=== PATIENT | female | born 1940 | race Caucasian/White ===

== ENCOUNTER 2016-11-10 08:45 | Day surgery (SDC) | payer MEDICARE ==
[2016-11-09 11:24] VITALS: BMI 25.3
[~2016-11-10 08:45] MED LIST: LACTATED RINGERS 1,000 ML IV SCH
[2016-11-10 09:50] VITALS: TEMP 97.6
[2016-11-10] MEDS ORDERED: LIDOCAINE 1% 20 ML VIAL (10MG/ML) FOR IV START INTRADERMA ONE (09:51)
[2016-11-10] MEDS ORDERED: ONDANSETRON 4 MG/2 ML VIAL IVP ONE (09:51)
[2016-11-10 09:57] LABS: Glucose,Whole Blood 144 mg/dL (75-99)
[2016-11-10] MEDS ORDERED: LIDOCAINE 1% INJ 10MG/ML (20 ML MDV) ONE (10:26)
[2016-11-10] MEDS ORDERED: PROPOFOL 10 MG/ML 20 ML VIAL IV ONE (10:26)
--- NOTE | 2016-11-10 10:43 | P.PCN ---
Date of Procedure: 11/10/16 Preoperative Diagnosis: Postoperative Diagnosis: Procedure(s) Performed: BRIEF HISTORY: Patient is a 75-year-old pleasant white female, scheduled for an elective colonoscopy as a part of screening for colorectal neoplasia PROCEDURE PERFORMED: Colonoscopy. PREOPERATIVE DIAGNOSIS: Screening for colon cancer IV sedation per Anesthesia. PROCEDURE: After informed consent was obtained, the patient, was brought into the endoscopy unit. IV sedation was administered by Anesthesia under continuous monitoring. Digital rectal examination was normal. Initially the Olympus CF- 160 flexible video colonoscope was then inserted in the rectum, gradually advanced into the cecum without any difficulty. Careful examination was performed as the scope was gradually being withdrawn. Ileocecal valve and the appendiceal orifice were visualized and appeared normal. Prep was excellent. Mucosa of the cecum, ascending colon, transverse colon, descending colon, sigmoid colon, and rectum appeared normal. Retroflexion was performed in the rectum and no lesions were seen. Moderate sigmoid diverticulosis The patient tolerated the procedure well. IMPRESSION: Normal-appearing colon from rectum to cecum with no evidence of colorectal neoplasia . Moderate sigmoid diverticulosis RECOMMENDATIONS: Findings of this examination were discussed with the patient as well as a family. She was advised to have a repeat screening colonoscopy in 10 years from now. Implants: Indications for Procedure: Operative Findings: Description of Procedure:
[2016-11-10 11:34] VITALS: RESP 18
[2016-11-10 11:41] VITALS: BP 180/90; PULSE 61
== END 2016-11-10 11:47 | disposition home or self-care (01) ==
LOC: ORWHC2ENDO 08:45
PROVIDERS: ATTEND Internal Medicine Gastroenterology
DX: Z12.11 Encounter for screening for malignant neoplasm of colon (principal); K57.30 Diverticulosis of large intestine without perforation or abscess without bleeding; I10 Essential (primary) hypertension; E11.9 Type 2 diabetes mellitus without complications; E78.5 Hyperlipidemia, unspecified; Z79.84 Long term (current) use of oral hypoglycemic drugs; Z79.82 Long term (current) use of aspirin; Z79.899 Other long term (current) drug therapy; Z88.5 Allergy status to narcotic agent; Z88.8 Allergy status to other drugs, medicaments and biological substances
CPT/HCPCS: J2405; J2001; J2704; G0121

== ENCOUNTER → 2016-12-21 | Outpatient (CLI) | payer MEDICARE ==
--- NOTE | 2016-12-22 09:49 | MM ---
Reason for exam: screening (asymptomatic). Last mammogram was performed 1 year ago. Physical Findings: A clinical breast exam by your physician is recommended on an annual basis and results should be correlated with mammographic findings. MG 3D Screening Mammo W/Cad Bilateral CC and MLO view(s) were taken. Prior study comparison: December 21, 2015, bilateral MG screening mammo w CAD. December 15, 2014, bilateral MG screening mammo w CAD. The breast tissue is heterogeneously dense. This may lower the sensitivity of mammography. Finding: There are stable typically benign calcifications in both breasts. ASSESSMENT: Benign, BI-RAD 2 RECOMMENDATION: Routine screening mammogram of both breasts in 1 year.
== END | disposition home or self-care (01) ==
LOC: RADMAMWWP 09:52
PROVIDERS: ATTEND Internal Medicine Geriatric Medicine
DX: Z12.31 Encounter for screening mammogram for malignant neoplasm of breast (principal)
CPT/HCPCS: 77063; G0202

== ENCOUNTER → 2017-01-04 | Outpatient (CLI) | payer MEDICARE ==
[2017-01-04 09:59] LABS: Calcium 9.5 mg/dL (8.4-10.2)
== END | disposition home or self-care (01) ==
LOC: LABWHC1 09:02
PROVIDERS: ATTEND Internal Medicine Geriatric Medicine
DX: E83.52 Hypercalcemia (principal); R94.6 Abnormal results of thyroid function studies
CPT/HCPCS: 36415; 82310; 83970; 84439; 84443

== ENCOUNTER → 2017-11-14 | Outpatient (CLI) | payer MEDICARE ==
[2017-11-14 09:35] LABS: Blood Urea Nitrogen 16 mg/dL (7-17)
== END | disposition home or self-care (01) ==
LOC: LABWHC1 08:27
PROVIDERS: ATTEND Orthopaedic Surgery
DX: N28.9 Disorder of kidney and ureter, unspecified (principal)
CPT/HCPCS: 36415; 82565; 84520

== ENCOUNTER → 2018-01-11 | Outpatient (CLI) | payer MEDICARE ==
--- NOTE | 2018-01-15 09:15 | MM ---
Reason for exam: screening (asymptomatic). Last mammogram was performed 1 year and 1 month ago. Physical Findings: A clinical breast exam by your physician is recommended on an annual basis and results should be correlated with mammographic findings. MG 3D Screening Mammo W/Cad Bilateral CC and MLO view(s) were taken. Prior study comparison: December 21, 2016, bilateral MG 3d screening mammo w/cad. December 21, 2015, bilateral MG screening mammo w CAD. The breast tissue is heterogeneously dense. This may lower the sensitivity of mammography. No significant changes when compared with prior studies. ASSESSMENT: Negative, BI-RAD 1 RECOMMENDATION: Routine screening mammogram of both breasts in 1 year.
== END | disposition home or self-care (01) ==
LOC: RADMAMWWP 10:49
PROVIDERS: ATTEND Internal Medicine Geriatric Medicine
DX: Z12.31 Encounter for screening mammogram for malignant neoplasm of breast (principal)
CPT/HCPCS: 77063; 77067

== ENCOUNTER → 2019-01-27 | Outpatient (CLI) | payer MEDICARE ==
--- NOTE | 2019-01-27 20:26 | BD ---
EXAMINATION TYPE: Axial Bone Density DATE OF EXAM: 01/27/2019 COMPARISON: 12.21.2015 CLINICAL HISTORY: 78 YR OLD FEMALE.....ICD-10 CODE: M81.0 AGE RELATED OSTEOPOROSIS Height: 63 Weight: 141 FRAX RISK QUESTIONS: Family History (Parent hip fracture): YES Secondary Osteoporosis: POSSIBLY 3. Menopause before 45: UNSURE, HYST AT AGE 32 RISK FACTORS HISTORY OF: ALL FXs UNDER THE AGE OF 50 History of Wrist Fracture: RT WRIST...< 50 YRS Family History of Osteoporosis: YES, MOTHER WITH BROKEN HIP Postmenopausal woman: YES, HYST AT AGE 32 PARTIAL ONLY MEDICATIONS: Prednisone or other steroids: PREDNISON PRN Additional Medications: CALCIUM AND VIT D, ANTI ANXIETY/DEPRESSANT, BP MEDS, DIABETIC MEDS, REFLUX MO N, STATIN FOR CHOLESTEROL Additional History: HYPERTENSION, DIABETIC EXAM MEASUREMENTS: Bone mineral densitometry was performed using the [employer] System. Bone mineral density as measured about the Lumbar spine is: ----- L1-L4(G/cm2): 1.282 T Score Values are as follows: ----- L1: 0.0 ----- L2: -0.4 ----- L3: 1.3 ----- L4: 2.2 ----- L1-L4: 0.9 Bone mineral density has: Increased 3.1% since study of: 12.21.2015 Bone mineral density about the R hip (g/cm2): 0.751 Bone mineral density about the L hip (g/cm2): 0.807 T Score values are as follows: -----R Neck: -1.8 -----L Neck: -1.9 -----R Total: -2.0 -----L Total: -1.6 Bone mineral density has: Decreased -4.1% since study of: 12.21.2015 FRAX%s: THERE IS A 33.4% CHANCE FOR A MAJOR OSTEOPOROTIC FX AND A 19.1% FOR HIP......PROBABILITY FO R FX IN 10 YRS TIME IMPRESSION: Osteopenia (T Score between -2.5 and -1). There is slightly increased risk of fracture and the patient may be considered for treatment. Re-Screen 2-5 years. NOTE: T-SCORE=SD OF THE YOUNG ADULT MEAN.
--- NOTE | 2019-01-28 11:15 | MM ---
Reason for exam: screening (asymptomatic). Last mammogram was performed 1 year and 1 month ago. Physical Findings: A clinical breast exam by your physician is recommended on an annual basis and results should be correlated with mammographic findings. MG 3D Screening Mammo W/Cad Bilateral CC and MLO view(s) were taken. Prior study comparison: January 11, 2018, bilateral MG 3d screening mammo w/cad. December 21, 2016, bilateral MG 3d screening mammo w/cad. The breast tissue is heterogeneously dense. This may lower the sensitivity of mammography. There are benign appearing round calcifications bilaterally. There is no discrete abnormality. ASSESSMENT: Benign, BI-RAD 2 RECOMMENDATION: Routine screening mammogram of both breasts in 1 year.
== END | disposition home or self-care (01) ==
LOC: RADMAMWWP 13:36
PROVIDERS: ATTEND Internal Medicine Geriatric Medicine
DX: Z12.31 Encounter for screening mammogram for malignant neoplasm of breast (principal); M85.88 Other specified disorders of bone density and structure, other site
CPT/HCPCS: 77063; 77067; 77080

== ENCOUNTER 2020-03-20 11:47 | Emergency (ER) | payer MEDICARE ==
[2020-03-20 11:53] VITALS: TEMP 98.1
[2020-03-20] MEDS ORDERED: DIPH,PERTUS(ACELL)TETVAC-LF 0.5 ML VIAL IM ONE (12:20)
--- NOTE | 2020-03-20 12:25 | ED ---
General Adult HPI - General Chief complaint: Head Injury Stated complaint: fall/face & hand injury Time Seen by Provider: 03/20/20 11:55 Source: patient, RN notes reviewed Mode of arrival: ambulatory Limitations: no limitations - History of Present Illness Initial comments: Patient is a pleasant 79-year-old female presenting to the emergency department following a fall. Incident occurred around 10 PM yesterday, over 14 hours ago. Patient states she just lost her balance and fell over. Patient states this does occasionally happen to her. Patient did strike the right side of her face. Patient has mild to moderate discomfort on the right side of her face and forehead. Patient denies loss of consciousness. No confusion. No weakness. Patient also complains of some discomfort of her left thumb. Patient is ambulatory without difficulty. - Related Data Home Medications Medication Instructions Recorded Confirmed Aspirin 81 mg PO DAILY 11/09/16 11/09/16 Cholecalciferol [Vitamin D3] 1,000 unit PO DAILY 11/09/16 11/09/16 Cyanocobalamin [Vitamin B-12] 500 mcg PO DAILY 11/09/16 11/09/16 Enalapril [Vasotec] 10 mg PO HS 11/09/16 11/09/16 Garlic 1 each PO DAILY 11/09/16 11/09/16 Metoprolol Tartrate [Lopressor] 25 mg PO 11/09/16 11/09/16 Metoprolol Tartrate [Lopressor] 50 mg PO QA 11/09/16 11/09/16 Niacin 500 mg PO BID 11/09/16 11/09/16 Simvastatin [Zocor] 20 mg PO 11/09/16 11/09/16 metFORMIN HCL [Metformin HCl] 1,000 mg PO 11/09/16 11/09/16 metFORMIN HCL [Metformin HCl] 500 mg PO QAM 11/09/16 11/09/16 Allergies Allergy/AdvReac Type Severity Reaction Status Date / Time meperidine [From Demerol] Allergy Nausea & Verified 03/20/20 11:54 Vomiting codeine AdvReac Nausea & Verified 11/09/16 11:19 Vomiting Review of Systems ROS Statement: Those systems with pertinent positive or pertinent negative responses have been documented in the HPI. ROS Other: All systems not noted in ROS Statement are negative. Constitutional: Denies: chills Eyes: Denies: eye pain, vision change ENT: Denies: ear pain Respiratory: Denies: cough Cardiovascular: Denies: chest pain Endocrine: Denies: fatigue Gastrointestinal: Denies: abdominal pain Genitourinary: Denies: dysuria Musculoskeletal: Denies: back pain Skin: Denies: rash Neurological: Reports: headache Past Medical History Past Medical History: Diabetes Mellitus, Hyperlipidemia, Hypertension Additional Past Medical History / Comment(s): hx. colon polyps, "leaky valve" History of Any Multi-Drug Resistant Organisms: None Reported Past Surgical History: Hernia Repair, Hysterectomy, Orthopedic Surgery Additional Past Surgical History / Comment(s): bunionectomy, blepharoplasty Past Anesthesia/Blood Transfusion Reactions: Postoperative Nausea & Vomiting (PONV) Past Psychological History: No Psychological Hx Reported Smoking Status: Never smoker Past Alcohol Use History: Occasional Past Drug Use History: None Reported - Past Family History Sister(s) Family Medical History: Cancer Brother(s) Family Medical History: CVA/TIA Additional Family Medical History / Comment(s): aneurysm General Exam Limitations: no limitations General appearance: alert, in no apparent distress Head exam: Present: normocephalic, other (Right periorbital swelling and mild tenderness.) Eye exam: Present: PERRL, EOMI, other (Right-sided subconjunctival hemorrhage). Absent: nystagmus ENT exam: Present: normal oropharynx, other (Mild nasal tenderness. No septal hematoma.) Neck exam: Absent: tenderness Respiratory exam: Present: normal lung sounds bilaterally Cardiovascular Exam: Present: regular rate, normal rhythm GI/Abdominal exam: Present: soft. Absent: tenderness Extremities exam: Present: tenderness (Left hand near the dorsal thenar eminence with swelling and tenderness. Distally extremity is neurovascular intact.) Neurological exam: Present: alert, oriented X3, CN II-XII intact. Absent: motor sensory deficit Expanded Neurological exam: Present: protecting the airway Speech: Present: fluid speech Cranial nerves: EOM's Intact: Normal, Facial Sensation: Normal Motor strength exam: RUE: 5, LUE: 5, RLE: 5, LLE: 5 Eye Response: (4) open spontaneously Motor Response: (6) obeys commands Verbal Response: (5) oriented Psychiatric exam: Present: normal affect, normal mood Skin exam: Present: other (Right forehead just above the eyebrow with approximately 1 cm laceration, near approximated) Course Vital Signs 03/20/20 11:48 Temperature 98.1 F Pulse Rate 68 Respiratory 18 Rate Blood Pressure 191/97 O2 Sat by Pulse 96 Oximetry - Reevaluation(s) Reevaluation #1: 03/20/20 12:25 Patient made aware of risks of leg laceration repair. Patient prefers have Steri-Strips. Procedures - Orthopedic Splinting/Casting Injury #1 Side: left Upper Extremity Injury Location: short arm, wrist Upper Extremity Immobilizer: thumb spica Medical Decision Making - Medical Decision Making Splint placed. Patient reevaluated and updated. - Radiology Data Radiology results: report reviewed (Computed tomography scan brain shows no acute process. Computed tomography scan facial bones shows questionable nasal fracture), image reviewed (Left hand x-ray does show fracture at the base of the first phalanx.) Disposition Clinical Impression: Fracture of thumb, left, closed, Nasal fracture Disposition: HOME SELF-CARE Condition: Stable Instructions (If sedation given, give patient instructions): Head Injury (ED), Hand Fracture (ED), Nasal Fracture (ED) Additional Instructions: Please follow-up with primary care physician and orthopedics in the next couple days for recheck. Ice to affected area. Return for confusion, weakness, worsening or changing symptoms or other concerns. Is patient prescribed a controlled substance at d/c from ED?: No Referrals: Steven Garcia MD [Primary Care Provider] - 1-2 days Delio Harris DO [Doctor of Osteopathic Medicine] - 1-2 days Time of Disposition: 13:38
--- NOTE | 2020-03-20 12:53 | CT ---
EXAMINATION TYPE: CT brain wo con DATE OF EXAM: 03/20/2020 COMPARISON: None available. HISTORY: Fall, head and facial injuries CT DLP: 742.1 mGycm Automated exposure control for dose reduction was used. FINDINGS: There is no intracranial hemorrhage, mass effect, midline shift or hydrocephalus. The white matter is grossly preserved. There is moderate right periorbital soft tissue edema without significant post se ptal involvement. The paranasal sinuses and mastoid air cells are adequately aerated. No calvarial fracture. IMPRESSION: NO ACUTE INTRACRANIAL ABNORMALITY. RIGHT PERIORBITAL SOFT TISSUE EDEMA.
--- NOTE | 2020-03-20 13:00 | CT ---
EXAMINATION TYPE: CT facial bones wo con DATE OF EXAM: 03/20/2020 COMPARISON: None available. HISTORY: Fall, facial injuries [facility] Autom[facility] exposure control for dose reduction was used. TECHNIQUE: CT scan of the sinuses is performed without contrast, axial images are obtained, coronal r eformatted images are also reviewed. FINDINGS: The paranasal sinuses including the frontal, ethmoid, sphenoid, and maxillary sinuses bila terally are well-aerated without abnormal opacification. The ostiomeatal complex is patent bilateral ly on the coronal images. Visualized portion of mastoid air cells show no abnormal opacification. There is moderate right peter orbital soft tissue edema without significant post septal involvement. There is left nasal bone fract ure. Otherwise the globes are intact bilaterally. IMPRESSION: Right periorbital soft tissue edema. Age-indeterminate left nasal bone fracture, probably acute.
--- NOTE | 2020-03-20 13:08 | XR ---
EXAMINATION TYPE: XR hand complete LT DATE OF EXAM: 03/20/2020 COMPARISON: NONE HISTORY: A TECHNIQUE: Three views are submitted. FINDINGS: There is diffuse osteopenia. There is a fracture involving the base of the proximal phalanx first dig it. Mild arthropathy of the PIP joint with more moderate to severe disease involving the PIP and DIP join ts of all digits. Arthropathy of the first carpal metacarpal joint and radiocarpal joint. IMPRESSION: 1. Mildly displaced fracture base proximal phalanx first digit. 2. Arthropathy with diffuse osteopenia 3. Correlate for erosive osteoarthritis.
[2020-03-20 13:59] VITALS: BP 112/71; PULSE 76; RESP 16
== END 2020-03-20 13:58 | disposition home or self-care (01) ==
LOC: EC 11:47
DX: S62.512A Displaced fracture of proximal phalanx of left thumb, initial encounter for closed fracture (principal); S02.2XXA Fracture of nasal bones, initial encounter for closed fracture; S01.81XA Laceration without foreign body of other part of head, initial encounter; H11.31 Conjunctival hemorrhage, right eye; I10 Essential (primary) hypertension; E11.9 Type 2 diabetes mellitus without complications; E78.5 Hyperlipidemia, unspecified; Z79.82 Long term (current) use of aspirin; Z79.899 Other long term (current) drug therapy; Z79.84 Long term (current) use of oral hypoglycemic drugs; Z88.5 Allergy status to narcotic agent; Z23 Encounter for immunization; Z98.890 Other specified postprocedural states; W19.XXXA Unspecified fall, initial encounter
CPT/HCPCS: 29125; 70450; 70486; 90471; 90715; 99284

== ENCOUNTER → 2022-11-01 | Outpatient (CLI) | payer MEDICARE ==
--- NOTE | 2022-11-01 08:51 | BD ---
EXAMINATION TYPE: Axial Bone Density DATE OF EXAM: 11/01/2022 CLINICAL HISTORY: 81 years old Female. ICD-10 CODE: M81.0 OSTEOPOROSIS Height: 62.5 in Weight: 149 lbs FRAX RISK QUESTIONS: Family History (Parent hip fracture): yes mother History of Fracture in Adulthood: rt wrist age 40; rt thumb fx age 77 Secondary Osteoporosis: 3. Menopause before 45: partial hysterectomy age 31 RISK FACTORS HISTORY OF: History of Wrist Fracture: rt wrist When: age 42 Family History of Osteoporosis: yes mother Active: yes Postmenopausal woman: partial hysterectomy age 31 Frequent falls: yes due to balance issues MEDICATIONS: Additional Medications: calcium, vit d, blood pressure meds, diabetes meds, heart meds, EXAM MEASUREMENTS: Bone mineral densitometry was performed using the [employer] System. Bone mineral density as measured about the Lumbar spine is: ----- L1-L4(G/cm2): 1.149 T Score Values are as follows: ----- L1: -0.8 ----- L2: -0.9 ----- L3: 0.0 ----- L4: 0.3 ----- L1-L4: -0.3 Z Score Values are as follows: ----- L1: 1.0 ----- L2: 0.8 ----- L3: 1.7 ----- L4: 2.0 ----- L1-L4: 1.5 Bone mineral density has: Decreased -10.4% since study of: 01/27/2019 Bone mineral density about the R hip (g/cm2): 0.696 Bone mineral density about the L hip (g/cm2): 0.757 T Score values are as follows: -----R Neck: -2.8 -----L Neck: -2.2 -----R Total: -2.5 -----L Total: -2.0 Z Score values are as follows: -----R Neck: -0.7 -----L Neck: -0.1 -----R Total: -0.5 -----L Total: -0.1 Bone mineral density has: Decreased -6.7% since study of: 01/27/2019 FRAX%s: The graph provided illustrates a 52.9% chance for a major osteoporotic fx and a 38.9% chance for the hips probability for fx in 10 years time. IMPRESSION: Osteoporosis (T Score less than -2.5). There is increased fracture risk and therapy is usually indicated based on age. Re-Screen 1-2 years. NOTE: T-SCORE=SD OF THE YOUNG ADULT MEAN.
--- NOTE | 2022-11-02 10:07 | MM ---
Reason for Exam: Screening (asymptomatic). Last screening mammogram was performed 12 month(s) ago. Patient History: Menarche at age 15. First Full-Term at age 22. Hysterectomy at age 31. Postmenopausal. Risk Values: Leigha 5 year model risk: 1.5%. NCI Lifetime model risk: 2.5%. Prior Study Comparison: 12/21/2015 Bilateral Screening Mammogram, [facility]. 12/21/2016 Bilateral Screening Mammogram, [facility]. 01/11/2018 Bilateral Screening Mammogram, [facility]. 01/27/2019 Bilateral Screening Mammogram, [facility]. 10/31/2021 Bilateral MG 3D screening mammo w/cad, [facility]. Tissue Density: The breast tissue is heterogeneously dense. This may lower the sensitivity of mammography. Findings: Analyzed By CAD. There is no suspicious group of microcalcifications or new suspicious mass in either breast. Overall Assessment: Negative, BI-RAD 1 Management: Screening Mammogram of both breasts in [address] [facility] will attempt to contact patient to return for supplemental views and ultrasound if indicated. Patient should continue monthly self-breast exams. A clinical breast exam by your physician is recommended on an annual basis. This exam should not preclude additional follow-up of suspicious palpable abnormalities. Note on Leigha scores and lifetime risk: 1. A Leigha score greater than 3% is considered moderate risk. If this is the case, consider specialist referral to assess eligibility for a risk reducing agent. 2. If overall lifetime risk for the development of breast cancer is 20% or higher, the patient may qualify for future screening with alternating mammogram and breast MRI. Electronically signed and approved by: Lamberto Pichardo DO
== END | disposition home or self-care (01) ==
LOC: RADMAMWWP 07:10
PROVIDERS: ATTEND Internal Medicine Geriatric Medicine
DX: Z12.31 Encounter for screening mammogram for malignant neoplasm of breast (principal); M81.0 Age-related osteoporosis without current pathological fracture; M85.89 Other specified disorders of bone density and structure, multiple sites; Z78.0 Asymptomatic menopausal state
CPT/HCPCS: 77063; 77067; 77080